=== PATIENT | male | born 1970 | race Caucasian/White ===

== ENCOUNTER 2019-11-17 08:11 | Emergency (ER) | payer BC ==
[~2019-11-17] VITALS: Ht 167.6 cm; Wt 74.8 kg
--- NOTE | 2019-11-17 08:15 | NUR ---
PATIENT WAS MSE BY DR CERVANTES IN ROOM 04B. PATIENT OFFERED MEDS FOR PAIN. PATIENT REFUSED. ICE PACK PLACE ON LEFT FOOT/ANKLE.
[2019-11-17] MEDS ORDERED: KETOROLAC TROMETHAMINE 60 MG INJ IM ONE ×2 (08:30→08:33)
[2019-11-17] MEDS ORDERED: MORPHINE SULFATE 4 MG/1 ML DISP.SYRIN IM ONE (08:45)
[2019-11-17] MEDS ORDERED: MORPHINE SULFATE 4 MG/1 ML DISP.SYRIN ONE (08:55)
--- NOTE | 2019-11-17 09:10 | NUR ---
PATIENT WILL LOAD MANAGER COPY OF X RAYS LATER.
--- NOTE | 2019-11-17 09:17 | NUR ---
Patient discharged to home in stable condition. Written and verbal after care instructions given. Patient verbalizes understanding of instructions. Stressed follow up or return to ER for worsening s/s.
[2019-11-17 09:19] VITALS: BP 145/81
== END 2019-11-17 09:17 | disposition home or self-care (01) ==
LOC: ER 08:11
PROC: 2W3RX1Z Immobilization of Left Lower Leg using Splint (ICD-10-PCS; principal; 2019-11-17)
DX: S82.832A Other fracture of upper and lower end of left fibula, initial encounter for closed fracture (principal); S82.302A Unspecified fracture of lower end of left tibia, initial encounter for closed fracture; X50.0XXA Overexertion from strenuous movement or load, initial encounter; X50.9XXA Other and unspecified overexertion or strenuous movements or postures, initial encounter; Y93.02 Activity, running; Y92.008 Other place in unspecified non-institutional (private) residence as the place of occurrence of the external cause
CPT/HCPCS: 29515; 73610; 96372; 99283; J1885; A4663; J2270

== ENCOUNTER 2023-04-03 06:11 | Emergency (ER) | payer BC ==
[~2023-04-03] VITALS: Ht 170.2 cm; Wt 76.2 kg
[2023-04-03 06:56] LABS: *BLOOD, URINE 3+ (NEGATIVE); *CLARITY,URINE CLEAR (CLEAR); *COLOR,URINE YELLOW (YELLOW); *KETONES,URINE TRACE (NEGATIVE); *PROTEIN,URINE 1+ (NEGATIVE); *UROBILINOGEN,URINE 0.2 E.U./dl (NORMAL); LEUKOCYTE ESTERASE ,URINE NEGATIVE (NEGATIVE); NITRITE, URINE NEGATIVE (NEGATIVE); PH,URINE 5.5 (5.0-8.0); UGLUCOSE NEGATIVE (NEGATIVE)
[2023-04-03] MEDS ORDERED: KETOROLAC TROMETHAMINE 30 MG INJ IVP ONE (07:15)
[2023-04-03] MEDS ORDERED: IV NS 1000 ML 1,000 ML IV ONE (07:15)
[2023-04-03 07:26] LABS: *BILIRUBIN,URIN 1+ (NEGATIVE)
[2023-04-03] MEDS ORDERED: KETOROLAC TROMETHAMINE 30 MG INJ ONE (07:39)
[2023-04-03] MEDS ORDERED: KETOROLAC TROMETHAMINE 60 MG INJ IM ONE (07:42)
[2023-04-03 07:45] LABS: BASOPHILS % (AUTO) 0.2 % (0.0-2.0); EOSINOPHILS # (AUTO) 0.1 K/uL (0.0-0.7); EOSINOPHILS % (AUTO) 1.8 % (0.0-7.0); HEMATOCRIT 41.2 % (36.7-47.1); HEMOGLOBIN 14.5 g/dL (12.5-16.3); MEAN CORPUSCULAR HEMOGLOBIN 31.1 uug (23.8-33.4); MEAN CORPUSCULAR HGB CONC 35 g/dL (32.5-36.3); MEAN CORPUSCULAR VOLUME 88.2 fL (73.0-96.2); MONOCYTES # (AUTO) 0.8 K/uL (0.1-1.30); MONOCYTES % (AUTO) 11.5 % (0.0-11.0); NEUTROPHILS # (AUTO) 4.7 K/uL (1.8-8.9); NEUTROPHILS % (AUTO) 71.5 % (38.5-71.5); PLATELET COUNT (AUTO) 223 K/uL (152-348); RED BLOOD CELL COUNT(AUTO) 4.68 MIL/uL (4.06-5.63); RED CELL DISTRIBUTION WIDTH 12.7 % (12.1-16.2); WHITE BLOOD COUNT (AUTO) 6.5 K/uL (3.6-10.2)
[2023-04-03 07:50] LABS: DIFFERENTIAL COMMENT 1
[2023-04-03 08:01] LABS: BACTERIA,URINE MODERATE /HPF (NONE SEEN); MUCUS,URINE MODERATE /LPF (0-FEW); SQUAMOUS EPITHELIAL CELL,UR FEW /HPF (NONE SEEN); WBC,URINE 0-3 /HPF (0-3)
[2023-04-03 08:09] LABS: CALCIUM 9.6 mg/dL (8.5-10.1); CREATININE 1.1 mg/dL (0.6-1.3); POTASSIUM 4.4 mmol/L (3.5-5.1)
[2023-04-03 08:16] LABS: BILIRUBIN,DIRECT 0.3 mg/dL (0.0-0.2); BILIRUBIN,TOTAL 2.9 mg/dL (0.2-1.0); TOTAL PROTEIN, SERUM 7.4 g/dL (6.4-8.2)
[2023-04-03] MEDS ORDERED: ONDA4TAB11 PO (08:28)
[2023-04-03] MEDS ORDERED: IBUP-1958 PO (08:28)
[2023-04-03] MEDS ORDERED: HYDR-4209 PO (08:28)
[2023-04-03 08:33] VITALS: BP 142/99; TEMP 98.7; O2SAT 97
== END 2023-04-03 08:34 | disposition home or self-care (01) ==
LOC: ER 06:15
DX: N20.0 Calculus of kidney (principal); Z79.1 Long term (current) use of non-steroidal anti-inflammatories (NSAID); Z79.899 Other long term (current) drug therapy
CPT/HCPCS: 99285; 96374; 76770; 80076; 80048; 81001; 83690; 85025; 36415; 87040; J1885; J7040; A4663

== ENCOUNTER 2023-04-20 04:35 | Emergency (ER) | payer BC ==
[~2023-04-20] VITALS: Ht 167.6 cm; Wt 74.4 kg
[~2023-04-20 04:35] MED LIST: HYDR-4209 PO; IBUP-1958 PO; ONDA4TAB11 PO
[2023-04-20] MEDS ORDERED: KETOROLAC TROMETHAMINE 30 MG INJ IVP ONE (05:00)
[2023-04-20] MEDS ORDERED: ONDANSETRON 4 MG/2 ML VIAL IV ONE (05:00)
[2023-04-20] MEDS ORDERED: IV NS 1000 ML 1,000 ML IV ONE ×2 (05:00)
[2023-04-20] MEDS ORDERED: MORPHINE SULFATE 10 MG/1 ML DISP.SYRIN IV ONE (05:00)
[2023-04-20] MEDS ORDERED: ONDANSETRON 4 MG/2 ML VIAL ONE (05:16)
[2023-04-20] MEDS ORDERED: MORPHINE SULFATE 2 MG/1 ML DISP.SYRIN ONE (05:17)
[2023-04-20] MEDS ORDERED: KETOROLAC TROMETHAMINE 30 MG INJ ONE (05:17)
[2023-04-20] MEDS ORDERED: MORPHINE SULFATE 4 MG/1 ML DISP.SYRIN ONE (05:17)
[2023-04-20 05:18] LABS: BASOPHILS # (AUTO) 0.1 K/UL (0.0-0.2); BASOPHILS % (AUTO) 0.5 % (0.0-2.0); EOSINOPHILS # (AUTO) 0.1 K/uL (0.0-0.7); EOSINOPHILS % (AUTO) 0.9 % (0.0-7.0); HEMATOCRIT 41.7 % (36.7-47.1); HEMOGLOBIN 14.7 g/dL (12.5-16.3); LYMPHOCYTES # (AUTO) 2.6 K/uL (0.8-4.8); LYMPHOCYTES % (AUTO) 24.2 % (20.5-51.5); MEAN CORPUSCULAR HEMOGLOBIN 30.7 uug (23.8-33.4); MEAN CORPUSCULAR HGB CONC 35 g/dL (32.5-36.3); MEAN CORPUSCULAR VOLUME 87.3 fL (73.0-96.2); MONOCYTES # (AUTO) 0.8 K/uL (0.1-1.30); MONOCYTES % (AUTO) 6.9 % (0.0-11.0); NEUTROPHILS # (AUTO) 7.3 K/uL (1.8-8.9); NEUTROPHILS % (AUTO) 67.5 % (38.5-71.5); PLATELET COUNT (AUTO) 248 K/uL (152-348); RED BLOOD CELL COUNT(AUTO) 4.78 MIL/uL (4.06-5.63); RED CELL DISTRIBUTION WIDTH 12.9 % (12.1-16.2); WHITE BLOOD COUNT (AUTO) 10.9 K/uL (3.6-10.2)
[2023-04-20 05:21] LABS: DIFFERENTIAL COMMENT 1
[2023-04-20 05:26] LABS: CALCIUM 9.4 mg/dL (8.5-10.1); CREATININE 1.1 mg/dL (0.6-1.3); POTASSIUM 3.7 mmol/L (3.5-5.1)
[2023-04-20] MEDS ORDERED: KETO10TA2 PO (06:17)
[2023-04-20] MEDS ORDERED: HYDR-3980 PO (06:17)
[2023-04-20] MEDS ORDERED: PROC10TA29 PO (06:17)
[2023-04-20 06:33] VITALS: BP 140/90; O2SAT 97
== END 2023-04-20 06:37 | disposition home or self-care (01) ==
LOC: ER 04:39
DX: R10.9 Unspecified abdominal pain (principal); Z79.1 Long term (current) use of non-steroidal anti-inflammatories (NSAID); Z79.899 Other long term (current) drug therapy
CPT/HCPCS: 99285; 74176; 96374; 96361; 96375; 80048; 85025; J1885; J2405; J2270 ×3; J7040 ×2; 36415; A4663